=== PATIENT | male | born 1975 | race Two or more races ===

== ENCOUNTER 2020-12-05 22:36 | Emergency (ER) | payer MEDICAID, OTHER ==
[~2020-12-05] VITALS: Ht 167.6 cm; Wt 81.6 kg
[2020-12-05 22:43] VITALS: BP 126/84
== END 2020-12-06 01:43 | disposition left against medical advice (07) ==
LOC: ER 22:36
DX: S61.011A Laceration without foreign body of right thumb without damage to nail, initial encounter (principal); Z53.21 Procedure and treatment not carried out due to patient leaving prior to being seen by health care provider; W26.0XXA Contact with knife, initial encounter; Y93.89 Activity, other specified; Y92.89 Other specified places as the place of occurrence of the external cause; Y99.8 Other external cause status